=== PATIENT | female | born 1990 | race Hispanic/Latino ===

== ENCOUNTER 2018-07-27 02:42 | Observation (INO) | payer OTHER ==
[2018-07-27] MEDS ORDERED: Sodium Chloride 0.9% 1,000 ML IV ONE ×3 (02:57→08:16)
[2018-07-27 03:05] LABS: BASO % 0.5 % (0.0-2.0); EOS % 0.4 % (0.0-4.0); HEMOGLOBIN 12.8 g/dL (11.0-16.0); LYMPH # 4.7 K/uL (1.0-4.3); LYMPH % 54.9 % (20.0-40.0); MEAN CELL VOLUME 89.8 fL (81.0-99.0); MEAN CORPUSCULAR HEMOGLOBIN 30.8 pg (27.0-31.0); MEAN CORPUSCULAR HGB CONC 34.3 g/dL (33.0-37.0); MEAN PLATELET VOLUME 7.2 fL (7.2-11.7); MONO # 0.5 K/uL (0.0-0.8); MONO % 5.3 % (0.0-10.0); NEUT # 3.3 K/uL (1.8-7.0); NEUT % 38.9 % (50.0-75.0); NRBC % 0.1 % (0.0-2.0); RBC 4.16 Mil/uL (3.80-5.20); RED CELL DISTRIBUTION WIDTH 11.8 % (11.5-14.5); WHITE BLOOD COUNT 8.6 K/uL (4.8-10.8)
--- NOTE | 2018-07-27 03:10 | C.PDOC ---
History Of Present Illness 27 y/o female presents to the ED complaining of sudden onset of mid-epigastric pain that began at midnight. Patient states symptoms began after she had pizza for dinner. Otherwise denies associated fever or chills. She reports episodes of bilious vomiting. Pain is described as sharp, stabbing, and rated 7/10. No changes in bowel or bladder habits. Time Seen by Provider: 07/27/18 03:09 Chief Complaint (Nursing): Abdominal Pain History Per: Patient History/Exam Limitations: no limitations Onset/Duration Of Symptoms: Hrs Current Symptoms Are (Timing): Still Present Context: Food Severity: Moderate Pain Scale Rating Of: 7 Location Of Pain/Discomfort: Epigastric Quality Of Discomfort: Sharp, Stabbing Associated Symptoms: Nausea, Vomiting Alleviating Factors: None Recent travel outside of the [place]: No Abnormal Vaginal Bleeding: No Past Medical History Reviewed: Historical Data, Nursing Documentation, Vital Signs Vital Signs: Last Vital Signs Temp 97.7 F 07/27/18 02:49 Pulse 56 L 07/27/18 02:49 Resp 16 07/27/18 02:49 BP 111/72 07/27/18 02:49 Pulse Ox 97 07/27/18 02:49 - Medical History PMH: No Chronic Diseases Surgical History: No Surg Hx Family History: States: No Known Family Hx - Social History Hx Tobacco Use: Yes Hx Alcohol Use: No Hx Substance Use: No Review Of Systems Constitutional: Negative for: Fever, Chills Respiratory: Negative for: Shortness of Breath Gastrointestinal: Positive for: Nausea, Vomiting, Abdominal Pain. Negative for: Diarrhea, Constipation, Hematemesis Genitourinary: Negative for: Dysuria, Frequency, Incontinence Neurological: Negative for: Weakness, Dizziness Physical Exam - Physical Exam Appears: Non-toxic, No Acute Distress Skin: Warm, Dry Head: Normacephalic Eye(s): bilateral: Normal Inspection Oral Mucosa: Moist Neck: Trachea Midline, Supple Chest: Symmetrical Cardiovascular: Rhythm Regular Respiratory: No Rales, No Rhonchi, No Wheezing Gastrointestinal/Abdominal: Soft, Tenderness (diffusely tender, especially to mid-epigastrium and RUQ), Guarding (some voluntary guarding), No Rebound Back: No CVA Tenderness Extremity: Normal ROM, No Pedal Edema Extremity: Bilateral: Atraumatic, Normal Color And Temperature Pulses: Left Dorsalis Pedis: Normal, Right Dorsalis Pedis: Normal Neurological/Psych: Oriented x3 ED Course And Treatment - Laboratory Results Result Diagrams: 07/27/18 03:00 07/27/18 03:00 O2 Sat by Pulse Oximetry: 97 (RA) Pulse Ox Interpretation: Normal Progress Note: Blood work and urine sent to the lab for analysis. Administered IV fluids, pepcid, morphine, and zofran. 4:30am On reeval, patient continues to complain of pain. Given 2nd liter of IV fluids, 4 mg morphine IVP, and [address] Abd/Pelvis ordered. Disposition Counseled Patient/Family Regarding: Studies Performed, Diagnosis, Need For Followup - Disposition Disposition Time: 03:10 Condition: FAIR Forms: [facility] (Filipino) - Clinical Impression Clinical Impression: Abdominal pain, Nausea, Vomiting - Scribe Statement The provider has reviewed the documentation as recorded by the Scribe (Karen Cardenas) Provider Attestation: All medical record entries made by the Scribe were at my direction and personally dictated by me. I have reviewed the chart and agree that the record accurately reflects my personal performance of the history, physical exam, medical decision making, and the department course for this patient. I have also personally directed, reviewed, and agree with the discharge instructions and disposition. Physician Patient Turnover Patient Signed Over To: Jesus Garibay DO Handoff Comments: pending ct results, re-eval and dispositon
[2018-07-27 03:14] LABS: ALB/GLOB RATIO 1.6 (1.0-2.1); ALBUMIN 3.9 g/dL (3.5-5.0); ALT/SGPT 36 U/L (9-52); AST/SGOT 18 U/L (14-36); BLOOD UREA NITROGEN 11 mg/dL (7-17); CALCIUM 8.9 mg/dl (8.6-10.4); GFR NON-AFRICAN AMERICAN > 60; LIPASE 47 U/L (23-300)
[2018-07-27] MEDS ORDERED: Morphine 4 MG/ML VIAL ONE ×2 (03:15→04:39)
[2018-07-27 03:53] LABS: PROTHROMBIN TIME 10.7 SECONDS (9.7-12.2)
[2018-07-27] MEDS ORDERED: Iodixanol 320 MG/ML 100 ML BOTTLE IV ONE (04:45)
[2018-07-27 06:28] LABS: URINE CLARITY Hazy (Clear); URINE COLOR YELLOW (YELLOW)
[2018-07-27 06:29] LABS: SQUAMOUS EPITHIAL 2 /hpf (0-5); URINE BILIRUBIN NEGATIVE (NEGATIVE); URINE BLOOD NEGATIVE (NEGATIVE); URINE GLUCOSE (UA) Normal (Normal); URINE LEUKOCYTE ESTERASE NEGATIVE Leu/uL (Negative); URINE PROTEIN NEGATIVE (NEGATIVE); URINE UROBILINOGEN Normal mg/dL (0.2-1.0)
[2018-07-27 06:30] LABS: URINE BACTERIA FEW (<OCC)
[2018-07-27] MEDS ORDERED: Morphine 4 MG/ML VIAL IV STA (08:16)
[2018-07-27] MEDS ORDERED: Sodium Chloride 0.9% 1,000 ML ONE (08:50)
[2018-07-27] MEDS ORDERED: Lactated Ringer's 1,000 ML ONE (08:51)
[2018-07-27] MEDS: Lactated Ringer's 1,000 ML IV SCH ×2 (08:55→20:51)
--- NOTE | 2018-07-27 09:29 | CP.PCM.CON ---
History of Present Illness - History of Present Illness History of Present Illness: General Surgery Consult note for Dr. Eden 27F with PMH of asthma presented to ED on 07/26 for abdominal pain, nausea and non-bloody, bilious vomiting after eating pizza and fries. She complains of non- radiating epigastric pain, which improved with morphine and stopped vomiting since last night.She is currently unable to pass gas or bowel movement since yesterday. Patient had her last normal/usual menstrual cycle 2 weeks ago. Cece ent denies any fever, chest pain, or SOB. PMH: Asthma PSH: [place] tooth extraction Family hx: non-contributory Social hx: Smoker (6 cigarettes/day), no ETOH, no illicit drugs Review of Systems - Review of Systems All systems: reviewed and no additional remarkable complaints except Review of Systems: Complains of dizziness, abdominal pain and nausea - Constitutional Constitutional: As Per HPI - EENT Eyes: As Per HPI - Cardiovascular Cardiovascular: As Per HPI - Respiratory Respiratory: As Per HPI - Gastrointestinal Gastrointestinal: As Per HPI, Abdominal Pain, Nausea, Vomiting. absent: Diarrhea - Genitourinary Genitourinary: As Per HPI - Reproductive: Female Reproductive:Female: As Per HPI - Menstruation Menstruation: As Per HPI - Musculoskeletal Musculoskeletal: As Per HPI - Integumentary Integumentary: As Per HPI - Neurological Neurological: As Per HPI - Psychiatric Psychiatric: As Per HPI - Endocrine Endocrine: As Per HPI Past Patient History - Past Medical History & Family History Past Medical History?: Yes Past Family History: Reviewed and not pertinent - Past Social History Smoking Status: Light Smoker < 10 Cigarettes Daily Alcohol: None Drugs: Denies Home Situation {Lives}: Other - PULMONARY Hx Asthma: Yes (not currently using inhaler) - PSYCHIATRIC Hx Substance Use: No - SURGICAL HISTORY Hx Surgeries: No Meds Allergies/Adverse Reactions: Allergies Allergy/AdvReac Type Severity Reaction Status Date / Time No Known Allergies Allergy Verified 07/27/18 02:51 - Medications Medications: Current Medications Lactated Ringer's (Lactated Ringer's) 1,000 mls @ 100 mls/hr IV .Q10H ISRA Last Admin: 07/27/18 08:55 Dose: 100 mls/hr Ondansetron HCl (Zofran Inj) 4 mg IVP Q4 PRN PRN Reason: Nausea/Vomiting Last Admin: 07/27/18 08:55 Dose: 4 mg Physical Exam - Constitutional Appears: No Acute Distress - Head Exam Head Exam: ATRAUMATIC, NORMAL INSPECTION, NORMOCEPHALIC - Neck Exam Neck exam: Positive for: Normal Inspection - Respiratory Exam Respiratory Exam: NORMAL BREATHING PATTERN. absent: Accessory Muscle Use - Cardiovascular Exam Cardiovascular Exam: REGULAR RHYTHM - GI/Abdominal Exam GI & Abdominal Exam: Normal Bowel Sounds, Soft, Tenderness - Extremities Exam Extremities exam: Positive for: normal inspection. Negative for: pedal edema - Skin Skin Exam: Normal Color, Warm Results - Vital Signs Recent Vital Signs: Last Vital Signs Temp 98.3 F 07/27/18 08:32 Pulse 50 L 07/27/18 08:32 Resp 18 07/27/18 08:32 BP 130/83 07/27/18 08:32 Pulse Ox 100 07/27/18 08:32 - Labs Result Diagrams: 07/27/18 03:00 07/27/18 03:00 Labs: Laboratory Results - last 24 hr 07/27/18 07/27/18 07/27/18 03:00 03:00 03:46 WBC 8.6 RBC 4.16 Hgb 12.8 Hct 37.3 MCV 89.8 MCH 30.8 MCHC 34.3 RDW 11.8 Plt Count 277 MPV 7.2 Neut % (Auto) 38.9 L Lymph % (Auto) 54.9 H [place] % (Auto) 5.3 Eos % (Auto) 0.4 Baso % (Auto) 0.5 Neut # (Auto) 3.3 Lymph # (Auto) 4.7 H [place] # (Auto) 0.5 Eos # (Auto) 0.0 Baso # (Auto) 0.0 PT 10.7 INR 1.0 APTT 23 Sodium 142 Potassium 3.5 L Chloride 107 Carbon Dioxide 25 Anion Gap 14 BUN 11 Creatinine 0.8 Est GFR ( Amer) > 60 Est GFR (Non-Af Amer) > 60 Random Glucose 126 H Calcium 8.9 Total Bilirubin 0.5 AST 18 ALT 36 Alkaline Phosphatase 40 Total Protein 6.4 Albumin 3.9 Globulin 2.5 Albumin/Globulin Ratio 1.6 Lipase 47 Urine Color Urine Clarity Urine pH Ur Specific [place] Urine Protein Urine Glucose (UA) Urine Ketones Urine Blood Urine Nitrate Urine Bilirubin Urine Urobilinogen Ur Leukocyte Esterase Urine WBC (Auto) Urine RBC (Auto) Ur Squamous Epith Cells Urine Bacteria Urine HCG, Qual 07/27/18 07/27/18 04:17 06:18 WBC RBC Hgb Hct MCV MCH MCHC RDW Plt Count MPV Neut % (Auto) Lymph % (Auto) [place] % (Auto) Eos % (Auto) Baso % (Auto) Neut # (Auto) Lymph # (Auto) [place] # (Auto) Eos # (Auto) Baso # (Auto) PT INR APTT Sodium Potassium Chloride Carbon Dioxide Anion Gap BUN Creatinine Est GFR ( Amer) Est GFR (Non-Af Amer) Random Glucose Calcium Total Bilirubin AST ALT Alkaline Phosphatase Total Protein Albumin Globulin Albumin/Globulin Ratio Lipase Urine Color Yellow Urine Clarity Hazy Urine pH 5.0 Ur Specific [place] 1.023 Urine Protein Negative Urine Glucose (UA) Normal Urine Ketones Negative Urine Blood Negative Urine Nitrate Negative Urine Bilirubin Negative Urine Urobilinogen Normal Ur Leukocyte Esterase Negative Urine WBC (Auto) 5 Urine RBC (Auto) 2 Ur Squamous Epith Cells 2 Urine Bacteria Few H Urine HCG, Qual Negative Assessment & Plan - Assessment and Plan (Free Text) Assessment: 27F with possible SBO Plan: RUQ US and Pelvic US for possible gallstone and partial SBO order PPI IV fluids Conservative management Pain management NPO Encourage ambulation Monitor bowel function/gas will D/W Dr. Eden
--- NOTE | 2018-07-27 09:40 | CP.PCM.HP ---
History of Present Illness - History of Present Illness History of Present Illness: 27F with PMH of asthma presented to ED on 07/26 for abdominal pain, nausea and non-bloody, bilious vomiting after eating pizza and fries. She complains of non- radiating epigastric pain, which improved with morphine and stopped vomiting since last night.She is currently unable to pass gas or bowel movement since yesterday. Patient had her last normal/usual menstrual cycle 2 weeks ago. Patient denies any fever, chest pain, or SOB. PMH: Asthma PSH: [place] tooth extraction Family hx: non-contributory Social hx: Smoker (6 cigarettes/day), no ETOH, no illicit drugs Present on Admission - Present on Admission Any Indicators Present on Admission: No History of DVT/PE: No History of Uncontrolled Diabetes: No Review of Systems - Review of Systems All systems: reviewed and no additional remarkable complaints except Review of Systems: abdominal pain, nausea, vomiting - Constitutional Constitutional: As Per HPI - EENT Eyes: As Per HPI Past Patient History - Past Medical History & Family History Past Medical History?: Yes Past Family History: Reviewed and not pertinent - Past Social History Smoking Status: Light Smoker < 10 Cigarettes Daily Alcohol: None Drugs: Denies - PULMONARY Hx Asthma: Yes (currently not using inhaler ) - PSYCHIATRIC Hx Substance Use: No - SURGICAL HISTORY Hx Surgeries: No Meds Allergies/Adverse Reactions: Allergies Allergy/AdvReac Type Severity Reaction Status Date / Time No Known Allergies Allergy Verified 07/27/18 02:51 Physical Exam - Constitutional Appears: Well, Non-toxic, No Acute Distress - Head Exam Head Exam: ATRAUMATIC, NORMAL INSPECTION, NORMOCEPHALIC - Neck Exam Neck exam: Positive for: Normal Inspection - Respiratory Exam Respiratory Exam: NORMAL BREATHING PATTERN. absent: Accessory Muscle Use - GI/Abdominal Exam GI & Abdominal Exam: Normal Bowel Sounds, Soft, Tenderness. absent: Distended, Guarding Additional comments: epigastric pain Tender to palpitation RLQ > LLQ - Extremities Exam Extremities exam: Positive for: normal inspection. Negative for: pedal edema - Neurological Exam Neurological exam: Alert, Oriented x3 - Psychiatric Exam Psychiatric exam: Normal Affect, Normal Mood - Skin Skin Exam: Normal Color, Warm Results - Vital Signs Recent Vital Signs: Last Vital Signs Temp 98.3 F 07/27/18 08:32 Pulse 50 L 07/27/18 08:32 Resp 18 07/27/18 08:32 BP 130/83 07/27/18 08:32 Pulse Ox 100 07/27/18 08:32 - Labs Result Diagrams: 07/28/18 06:12 07/28/18 06:12 Labs: Laboratory Results - last 24 hr 07/27/18 07/27/18 07/27/18 03:00 03:00 03:46 WBC 8.6 RBC 4.16 Hgb 12.8 Hct 37.3 MCV 89.8 MCH 30.8 MCHC 34.3 RDW 11.8 Plt Count 277 MPV 7.2 Neut % (Auto) 38.9 L Lymph % (Auto) 54.9 H [place] % (Auto) 5.3 Eos % (Auto) 0.4 Baso % (Auto) 0.5 Neut # (Auto) 3.3 Lymph # (Auto) 4.7 H [place] # (Auto) 0.5 Eos # (Auto) 0.0 Baso # (Auto) 0.0 PT 10.7 INR 1.0 APTT 23 Sodium 142 Potassium 3.5 L Chloride 107 Carbon Dioxide 25 Anion Gap 14 BUN 11 Creatinine 0.8 Est GFR ( Amer) > 60 Est GFR (Non-Af Amer) > 60 Random Glucose 126 H Calcium 8.9 Total Bilirubin 0.5 AST 18 ALT 36 Alkaline Phosphatase 40 Total Protein 6.4 Albumin 3.9 Globulin 2.5 Albumin/Globulin Ratio 1.6 Lipase 47 Urine Color Urine Clarity Urine pH Ur Specific [place] Urine Protein Urine Glucose (UA) Urine Ketones Urine Blood Urine Nitrate Urine Bilirubin Urine Urobilinogen Ur Leukocyte Esterase Urine WBC (Auto) Urine RBC (Auto) Ur Squamous Epith Cells Urine Bacteria Urine HCG, Qual 07/27/18 07/27/18 04:17 06:18 WBC RBC Hgb Hct MCV MCH MCHC RDW Plt Count MPV Neut % (Auto) Lymph % (Auto) [place] % (Auto) Eos % (Auto) Baso % (Auto) Neut # (Auto) Lymph # (Auto) [place] # (Auto) Eos # (Auto) Baso # (Auto) PT INR APTT Sodium Potassium Chloride Carbon Dioxide Anion Gap BUN Creatinine Est GFR ( Amer) Est GFR (Non-Af Amer) Random Glucose Calcium Total Bilirubin AST ALT Alkaline Phosphatase Total Protein Albumin Globulin Albumin/Globulin Ratio Lipase Urine Color Yellow Urine Clarity Hazy Urine pH 5.0 Ur Specific [place] 1.023 Urine Protein Negative Urine Glucose (UA) Normal Urine Ketones Negative Urine Blood Negative Urine Nitrate Negative Urine Bilirubin Negative Urine Urobilinogen Normal Ur Leukocyte Esterase Negative Urine WBC (Auto) 5 Urine RBC (Auto) 2 Ur Squamous Epith Cells 2 Urine Bacteria Few H Urine HCG, Qual Negative Assessment & Plan - Assessment and Plan (Free Text) Assessment: 27F with possible partial SBO Plan: RUQ US and Pelvic US for possible gallstone and partial SBO order PPI IV fluids Conservative management Pain management NPO Encourage ambulation Monitor bowel function/gas D/W Dr. Eden - Date & Time Date: 07/27/18 Time: 09:00 Decision To Admit - . Admitting Physician: Cornelia Eden
[2018-07-27 10:15] VITALS: RESP 20
--- NOTE | 2018-07-27 11:12 | CT ---
Date of service: 07/27/2018 PROCEDURE: CT Abdomen and Pelvis with contrast HISTORY: ruq pain COMPARISON: None available. TECHNIQUE: Contrast dose: 100 mL Visipaque 320 Radiation dose: Total exam DLP = 420.5 mGy-cm. This CT exam was performed using one or more of the following dose reduction techniques: Automated exposure control, adjustment of the mA and/or kV according to patient size, and/or use of iterative reconstruction technique. FINDINGS: LOWER THORAX: Mild bibasilar atelectasis. No visible pleural effusion or pneumothorax. LIVER: Subtle hypodensity adjacent to the falciform ligament, possibly focal fatty infiltration. Mild periportal edema. GALLBLADDER AND BILE DUCTS: Mild gallbladder wall thickening/pericholecystic edema. PANCREAS: Unremarkable. SPLEEN: Unremarkable. ADRENALS: Unremarkable. KIDNEYS AND URETERS: The kidneys enhance symmetrically. No hydronephrosis or obstructing calculus identified. VASCULATURE: No aortic aneurysm. No atherosclerotic calcification or mural plaque present. BOWEL: Stomach is nondistended. Lack of oral contrast limits evaluation for bowel pathology. Fluid-filled dilated abnormal loops of small bowel in the mid abdomen with apparent decompressed loops distally; appearance consistent with small bowel obstruction. Transition point appears in the right lower quadrant. Associated mesenteric edema. Diverticulosis without CT evidence of acute diverticulitis. APPENDIX: The appendix appears within normal limits of caliber. No secondary signs of acute appendicitis. PERITONEUM: Small to moderate pelvic free fluid. No definite free air. LYMPH NODES: No bulky adenopathy identified. BLADDER: Unremarkable. REPRODUCTIVE: Uterus is present. Probable bilateral ovarian cysts. The cervix appears prominent. BONES: No acute osseous abnormality is detected. OTHER FINDINGS: None. IMPRESSION: Evidence of small-bowel obstruction (likely early or partial/intermittent) with transition point identified in the right lower quadrant. Associated mesenteric edema. Small to moderate pelvic free fluid. Prominence of the cervix of unclear significance. Recommend further evaluation with pelvic ultrasound. Mild gallbladder wall thickening/pericholecystic edema. Mild periportal edema. Recommend right upper quadrant ultrasound. Subtle hypodensity adjacent to the falciform ligament, possibly focal fatty infiltration. Additional findings as above. Preliminary impression was provided by [employer].
--- NOTE | 2018-07-27 11:42 | US ---
HISTORY: please eval RUQ/partial SBO COMPARISON: None available. TECHNIQUE: Sonographic evaluation of the abdomen. FINDINGS: LIVER: Measures 16.4 cm in sagittal dimension and appears within normal limits of size, shape, and echotexture. No focal hepatic mass identified. The main portal vein appears patent with normal directional flow. No intrahepatic bile duct dilatation. GALLBLADDER: No gallstones. No gallbladder wall thickening. Negative sonographic Love's sign as assessed by the engineering vice president. COMMON BILE DUCT: Measures 3 mm. PANCREAS: Not well visualized. RIGHT KIDNEY: Measures 11.1 x 3.8 x 5.4cm. No obstructing calculus or hydronephrosis identified. LEFT KIDNEY: Measures 11.2 x 5.3 x 5.3cm. No obstructing calculus or hydronephrosis identified. SPLEEN: Measures approximately 9.7 cm. AORTA: Limited views appear unremarkable. IVC: Limited views appear unremarkable. OTHER FINDINGS: None. IMPRESSION: Unremarkable abdominal sonogram with findings as above. Mild pericholecystic fluid/edema seen on CT performed 07/27/18 is not appreciated on this examination. Correlate clinically.
--- NOTE | 2018-07-27 11:50 | US ---
Date of service: 07/27/2018 HISTORY: Pelvic free fluid COMPARISON: CT abdomen and pelvis with IV contrast performed 07/27/18 TECHNIQUE: Real-time transabdominal pelvic ultrasound was performed. In addition a transvaginal pelvic ultrasound was necessary to better depict pelvic anatomy. FINDINGS: UTERUS: Measures 7.0 x 3.6 x 4.7 cm. Anteverted. ENDOMETRIUM: Measures 4 mm in diameter. CERVIX: Cervix length measures approximately 2.5 cm. RIGHT OVARY: Measures 3.4 x 3.3 x 3.1 cm. Blood flow is demonstrated. LEFT OVARY: Measures 3.1 x 2.0 x 3.7 cm. Blood flow is demonstrated. FREE FLUID: Small to moderate pelvic free fluid. OTHER FINDINGS: None. IMPRESSION: Small to moderate pelvic free fluid.
[2018-07-27 14:00] LABS: BASO % 0.3 % (0.0-2.0); EOS % 0.1 % (0.0-4.0); HEMOGLOBIN 12.4 g/dL (11.0-16.0); LYMPH # 2.1 K/uL (1.0-4.3); LYMPH % 24.4 % (20.0-40.0); MEAN CELL VOLUME 89.1 fL (81.0-99.0); MEAN CORPUSCULAR HEMOGLOBIN 31.3 pg (27.0-31.0); MEAN CORPUSCULAR HGB CONC 35.2 g/dL (33.0-37.0); MEAN PLATELET VOLUME 7.5 fL (7.2-11.7); MONO # 0.6 K/uL (0.0-0.8); MONO % 7.1 % (0.0-10.0); NEUT # 5.9 K/uL (1.8-7.0); NEUT % 68.1 % (50.0-75.0); RBC 3.94 Mil/uL (3.80-5.20); WHITE BLOOD COUNT 8.7 K/uL (4.8-10.8)
[2018-07-28] MEDS: Lactated Ringer's 1,000 ML IV SCH ×2 (05:58→14:46)
[2018-07-28 06:18] LABS: BASO % 0.4 % (0.0-2.0); EOS % 0.8 % (0.0-4.0); HEMOGLOBIN 12.1 g/dL (11.0-16.0); LYMPH # 2.1 K/uL (1.0-4.3); LYMPH % 35.2 % (20.0-40.0); MEAN CELL VOLUME 89.4 fL (81.0-99.0); MEAN CORPUSCULAR HEMOGLOBIN 31.3 pg (27.0-31.0); MEAN PLATELET VOLUME 7.4 fL (7.2-11.7); MONO # 0.5 K/uL (0.0-0.8); MONO % 8.7 % (0.0-10.0); NEUT # 3.3 K/uL (1.8-7.0); NEUT % 54.9 % (50.0-75.0); RBC 3.85 Mil/uL (3.80-5.20); RED CELL DISTRIBUTION WIDTH 11.8 % (11.5-14.5); WHITE BLOOD COUNT 6.1 K/uL (4.8-10.8)
[2018-07-28 07:01] LABS: ALB/GLOB RATIO 1.4 (1.0-2.1); ALBUMIN 3.3 g/dL (3.5-5.0); ALT/SGPT 42 U/L (9-52); AST/SGOT 26 U/L (14-36); BLOOD UREA NITROGEN 6 mg/dL (7-17); CALCIUM 8.6 mg/dl (8.6-10.4); GFR NON-AFRICAN AMERICAN > 60
[2018-07-28] MEDS ORDERED: Enoxaparin 40 mg Syringe SC SCH (10:00)
--- NOTE | 2018-07-28 13:33 | CP.PCM.PN ---
Subjective - Date & Time of Evaluation Date of Evaluation: 07/28/18 Time of Evaluation: 13:31 - Subjective Subjective: Surgery Pt seen and examined. No acute events. Pain controlled. Passing flatus. No BM. Ambulates. Tolerated liquid. VOiding. Objective - Vital Signs/Intake and Output Vital Signs (last 24 hours): Temp Pulse Resp BP Pulse Ox 99.6 F 63 20 108/62 96 07/28/18 07:39 07/28/18 07:39 07/28/18 07:39 07/28/18 07:39 07/28/18 07:39 Intake and Output: 07/28/18 07/28/18 06:59 18:59 Intake Total 1650 Balance 1650 - Medications Medications: Current Medications Acetaminophen (Tylenol 325mg Tab) 650 mg PO Q6 PRN PRN Reason: Pain, moderate (4-7) Last Admin: 07/28/18 10:02 Dose: 650 mg Lactated Ringer's (Lactated Ringer's) 1,000 mls @ 100 mls/hr IV .Q10H [facility] Last Admin: 07/28/18 05:58 Dose: 100 mls/hr Influenza Virus Vaccine (Fluzone Quad 1406-9019) 60 mcg IM .ONCE ONE Stop: 07/29/18 10:01 Morphine Sulfate (Morphine) 2 mg IV Q4H PRN PRN Reason: Pain, severe (8-10) Ondansetron HCl (Zofran Inj) 4 mg IVP Q4 PRN PRN Reason: Nausea/Vomiting Last Admin: 07/27/18 08:55 Dose: 4 mg Pantoprazole Sodium (Protonix Inj) 40 mg IVP DAILY [facility] Last Admin: 07/28/18 10:02 Dose: 40 mg Pneumococcal Polyvalent Vaccine (Pneumovax 23 Vaccine) 0.5 ml IM .ONCE ONE Stop: 07/29/18 10:01 - Labs Labs: 07/28/18 06:12 07/28/18 06:12 PT 10.7 SECONDS (9.7-12.2) 07/27/18 03:46 INR 1.0 07/27/18 03:46 APTT 23 SECONDS (21-34) 07/27/18 03:46 - Constitutional Appears: No Acute Distress - Head Exam Head Exam: ATRAUMATIC, NORMAL INSPECTION, NORMOCEPHALIC - Eye Exam Eye Exam: EOMI, Normal appearance, PERRL Pupil Exam: NORMAL ACCOMODATION, PERRL - ENT Exam ENT Exam: Mucous Membranes Moist - Neck Exam Neck Exam: Full ROM, Normal Inspection. absent: Lymphadenopathy - Respiratory Exam Respiratory Exam: NORMAL BREATHING PATTERN - Cardiovascular Exam Cardiovascular Exam: REGULAR RHYTHM - GI/Abdominal Exam GI & Abdominal Exam: Soft. absent: Distended, Tenderness - Exam Exam: NORMAL INSPECTION - Extremities Exam Extremities Exam: Full ROM, Normal Capillary Refill, Normal Inspection. absent: Joint Swelling, Pedal Edema - Back Exam Back Exam: NORMAL INSPECTION - Neurological Exam Neurological Exam: Alert, Awake, CN II-XII Intact, Normal Gait, Oriented x3 - Psychiatric Exam Psychiatric exam: Normal Affect, Normal Mood - Skin Skin Exam: Dry, Intact, Normal Color, Warm Assessment and Plan - Assessment and Plan (Free Text) Assessment: Abdominal pain partial SBO. : Improving. Pt passing flatus Xray: shows no air/fluids level. No free air. -Advance diet as tolerated. -Monitor BM -Ambulate/ OOB -DVT ppx Will DW Dr. Eden
--- NOTE | 2018-07-28 14:08 | RAD ---
Date of service: 07/28/2018 PROCEDURE: Radiographs of the chest and abdomen (obstructive series) HISTORY: r/o internal hernia COMPARISON: No prior. TECHNIQUE: AP radiograph of the chest, with upright and supine radiographs of the abdomen. FINDINGS: CHEST: Lungs: The lungs are well inflated and clear. Cardiovascular: Normal size heart. No pulmonary vascular congestion. Pleura: No pleural fluid. No pneumothorax. Other findings: None. ABDOMEN AND PELVIS: Bowel: There is moderate amount of stool in the colon. The bowel gas pattern is nonobstructive. Free air: None. Bones: Unremarkable. Other findings: None. IMPRESSION: Nonspecific nonobstructive bowel gas pattern. Clear lungs.
[2018-07-28 15:56] VITALS: BP 107/66; PULSE 60; TEMP 98.9; O2SAT 97
[2018-07-28] MEDS ORDERED: Influenza Vaccine 60 MCG/0.5 ML SYR (3 yr & up) IM ONE (17:00)
[2018-07-28] MEDS ORDERED: Pneumococcal 23-Valent Vaccine IM ONE (17:00)
--- NOTE | 2018-07-28 17:29 | CP.PCM.DIS ---
Provider - Provider Date of Admission: 07/27/18 09:16 Attending physician: Cornelia Eden MD Time Spent in preparation of Discharge (in minutes): 29 Diagnosis - Discharge Diagnosis (1) Abdominal pain Status: Acute (2) Nausea Status: Acute (3) Vomiting Status: Acute Hospital Course - Lab Results Lab Results: Most Recent Lab Values WBC 6.1 K/uL (4.8-10.8) 07/28/18 06:12 RBC 3.85 Mil/uL (3.80-5.20) 07/28/18 06:12 Hgb 12.1 g/dL (11.0-16.0) 07/28/18 06:12 Hct 34.4 % (34.0-47.0) 07/28/18 06:12 MCV 89.4 fL (81.0-99.0) 07/28/18 06:12 MCH 31.3 pg (27.0-31.0) H 07/28/18 06:12 MCHC 35.0 g/dL (33.0-37.0) 07/28/18 06:12 RDW 11.8 % (11.5-14.5) 07/28/18 06:12 Plt Count 197 K/uL (130-400) 07/28/18 06:12 MPV 7.4 fL (7.2-11.7) 07/28/18 06:12 Neut % (Auto) 54.9 % (50.0-75.0) 07/28/18 06:12 Lymph % (Auto) 35.2 % (20.0-40.0) 07/28/18 06:12 [place] % (Auto) 8.7 % (0.0-10.0) 07/28/18 06:12 Eos % (Auto) 0.8 % (0.0-4.0) 07/28/18 06:12 Baso % (Auto) 0.4 % (0.0-2.0) 07/28/18 06:12 Neut # (Auto) 3.3 K/uL (1.8-7.0) 07/28/18 06:12 Lymph # (Auto) 2.1 K/uL (1.0-4.3) 07/28/18 06:12 [place] # (Auto) 0.5 K/uL (0.0-0.8) 07/28/18 06:12 Eos # (Auto) 0.0 K/uL (0.0-0.7) 07/28/18 06:12 Baso # (Auto) 0.0 K/uL (0.0-0.2) 07/28/18 06:12 PT 10.7 SECONDS (9.7-12.2) 07/27/18 03:46 INR 1.0 07/27/18 03:46 APTT 23 SECONDS (21-34) 07/27/18 03:46 Sodium 139 mmol/L (132-148) 07/28/18 06:12 Potassium 3.8 mmol/L (3.6-5.2) 07/28/18 06:12 Chloride 105 mmol/L (98-107) 07/28/18 06:12 Carbon Dioxide 27 mmol/L (22-30) 07/28/18 06:12 Anion Gap 11 (10-20) 07/28/18 06:12 BUN 6 mg/dL (7-17) L 07/28/18 06:12 Creatinine 0.7 mg/dL (0.7-1.2) 07/28/18 06:12 Est GFR ( Amer) > 60 07/28/18 06:12 Est GFR (Non-Af Amer) > 60 07/28/18 06:12 Random Glucose 78 mg/dL (65-105) 07/28/18 06:12 Lactic Acid 0.6 mmol/L (0.7-2.1) L 07/28/18 06:12 Calcium 8.6 mg/dl (8.6-10.4) 07/28/18 06:12 Phosphorus 3.5 mg/dL (2.5-4.5) 07/28/18 06:12 Magnesium 1.9 mg/dL (1.6-2.3) 07/28/18 06:12 Total Bilirubin 0.7 mg/dL (0.2-1.3) 07/28/18 06:12 AST 26 U/L (14-36) 07/28/18 06:12 ALT 42 U/L (9-52) 07/28/18 06:12 Alkaline Phosphatase 36 U/L (38-126) L 07/28/18 06:12 Total Protein 5.6 g/dL (6.3-8.3) L 07/28/18 06:12 Albumin 3.3 g/dL (3.5-5.0) L 07/28/18 06:12 Globulin 2.3 gm/dL (2.2-3.9) 07/28/18 06:12 Albumin/Globulin Ratio 1.4 (1.0-2.1) 07/28/18 06:12 Lipase 47 U/L (23-300) 07/27/18 03:00 Urine Color Yellow (YELLOW) 07/27/18 06:18 Urine Clarity Hazy (Clear) 07/27/18 06:18 Urine pH 5.0 (5.0-8.0) 07/27/18 06:18 Ur Specific [place] 1.023 (1.003-1.030) 07/27/18 06:18 Urine Protein Negative mg/dL (NEGATIVE) 07/27/18 06:18 Urine Glucose (UA) Normal mg/dL (Normal) 07/27/18 06:18 Urine Ketones Negative mg/dL (NEGATIVE) 07/27/18 06:18 Urine Blood Negative (NEGATIVE) 07/27/18 06:18 Urine Nitrate Negative (NEGATIVE) 07/27/18 06:18 Urine Bilirubin Negative (NEGATIVE) 07/27/18 06:18 Urine Urobilinogen Normal mg/dL (0.2-1.0) 07/27/18 06:18 Ur Leukocyte Esterase Negative [place]/uL (Negative) 07/27/18 06:18 Urine WBC (Auto) 5 /hpf (0-5) 07/27/18 06:18 Urine RBC (Auto) 2 /hpf (0-3) 07/27/18 06:18 Ur Squamous Epith Cells 2 /hpf (0-5) 07/27/18 06:18 Urine Bacteria Few (<OCC) H 07/27/18 06:18 Urine HCG, Qual Negative (NEGATIVE) 07/28/18 06:44 - Hospital Course Hospital Course: Patient was evaluated and treated from 07/27/18-07/28/18. Patient presented with abdominal pain/nausea/vomiting x1 day. Abdominal CT was concerning for SBO and pelvic free fluid. US revealed pelvic free fluid. Obstructive series was unremarkable. Patient improved clinically with bowel rest and pain medication. Labs and vitals remained stable and WNL. Patient began tolerating diet, passing flatus, and had no further abdominal pain. Patient stable for discharge home and advised to return to ED with worsening of symptoms. HPI on admission: "27F with PMH of asthma presented to ED on 07/26 for abdominal pain, nausea and non-bloody, bilious vomiting after eating pizza and fries. She complains of non- radiating epigastric pain, which improved with morphine and stopped vomiting since last night.She is currently unable to pass gas or bowel movement since yesterday. Patient had her last normal/usual menstrual cycle 2 weeks ago. Patient denies any fever, chest pain, or SOB." For full course of events, refer to EMR Discharge Exam - Head Exam Head Exam: ATRAUMATIC, NORMAL INSPECTION, NORMOCEPHALIC - Eye Exam Eye Exam: EOMI, Normal appearance - ENT Exam ENT Exam: Normal Exam - Neck Exam Neck exam: Normal Inspection - Respiratory Exam Respiratory Exam: Clear to PA & Lateral, NORMAL BREATHING PATTERN, UNREMARKABLE - Cardiovascular Exam Cardiovascular Exam: REGULAR RHYTHM. absent: Systolic Murmur - GI/Abdominal Exam GI & Abdominal Exam: Normal Bowel Sounds, Soft, Tenderness (RUQ minimally tender to palpation), Unremarkable. absent: Distended - Extremities Exam Extremities exam: normal capillary refill, normal inspection - Neurological Exam Neurological exam: Alert, Normal Gait, Oriented x3 - Psychiatric Exam Psychiatric exam: Normal Affect, Normal Mood - Skin Skin Exam: Dry, Intact, Normal Color Discharge Plan - Follow Up Plan Condition: FAIR Disposition: HOME/ ROUTINE Instructions: Acetaminophen, Ibuprofen, Acute Abdominal Pain (DC), Acute Abdominal Pain (GEN) Additional Instructions: Patient is stable for discharge home. Patient is advised to continue taking Tylenol or Motrin as needed for abdominal pain, not to exceed recommended dosages. Patient is advised to return to the ED for worsening of symptoms including severe pain or excessive vomiting amongst others.
[2018-07-29] MEDS ORDERED: Pneumococcal 23-Valent Vaccine IM ONE (10:00)
[2018-07-29] MEDS ORDERED: Influenza Vaccine 60 MCG/0.5 ML SYR (3 yr & up) IM ONE (10:00)
== END 2018-07-28 18:15 | disposition home or self-care (01) ==
LOC: C.ER 02:42 → C.3T 09:16
PROVIDERS: ADMIT Specialist; ATTEND Specialist
DX: K56.600 Partial intestinal obstruction, unspecified as to cause (principal); J45.909 Unspecified asthma, uncomplicated; F17.210 Nicotine dependence, cigarettes, uncomplicated
CPT/HCPCS: 36415; 74022; 74177; 76700; 76830; 76856; 80053; 81001; 83605; 83690; 83735; 84100; 84703; 85025; 85610; 85730; 96361; 96374; 96375; 96376; 99285; C9113; G0378; J1885; J2270; J2405; J3480; J7030; J7120; Q9967